=== PATIENT | male | born 2005 | race Caucasian/White ===

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

== ENCOUNTER 2025-01-24 00:55 | Emergency (ER) | payer BC, SELFPAY ==
[2025-01-24 00:59] VITALS: BP 127/72; PULSE 100; RESP 17; TEMP 36.7; O2SAT 100; BMI 21.0
--- NOTE | 2025-01-24 01:03 | ECG_ITS ---
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 Measurements Intervals [place] Rate: 90 P: 70 [place]: 163 QRS: 76 QRSD: 90 T: 55 QT: 350 QTc: 430 Interpretive Statements SINUS RHYTHM POSSIBLE LEFT ATRIAL ENLARGEMENT [-0.1mV P-WAVE IN V1/V2] INTERPRETATION BASED ON A DEFAULT AGE OF 40 YEARS No previous ECG available for comparison Electronically Signed On 01-24-2025 17:01:31 CDT by Michael Vee M.D. [id number]
--- NOTE | 2025-01-24 01:11 | XRR_ITS ---
PROCEDURE INFORMATION: Exam: XR Chest Exam date and time: 01/24/2025 2:08 AM Age: 19 years old Clinical indication: Chest pressure; C/O chest pain; Additional info: Cp TECHNIQUE: Imaging protocol: Radiologic exam of the chest. Views: 1 view. COMPARISON: CT abdomen pelvis w con* [id number] 07/08/2019 9:55 AM FINDINGS: Lungs: No consolidation. Pleural spaces: No pleural effusion. No pneumothorax. Heart/Mediastinum: No cardiomegaly. Bones/joints: No acute fracture. XR/XR chest 1V portable [id number] IMPRESSION: No acute findings.
[2025-01-24 01:54] LABS: Hematocrit 45.5 % (37-53); Hemoglobin 15.10 g/dL (13.2-15.6); Mean Corpuscular HGB Conc 33.2 g/dL (30-55); Mean Corpuscular Hemoglobin 29.1 pg (27-33); Mean Corpuscular Volume 87.7 fl (82-101); Nucleated Red Blood Cells % 0 %; Platelet Count 246 10^3/cmm (157-399); Red Blood Count 5.19 10^6/uL (3.85-5.65); White Blood Count 6.28 10^3/uL (4.5-13.0)
[2025-01-24 02:14] LABS: Alanine Aminotransferase 22 U/L (0-41); Albumin Level 4.9 g/dL (3.5-5.2); Alkaline Phosphatase 100 U/L (40-130); Anion Gap 14.0 (5-19); Aspartate Amino Transferase 19 U/L (0-40); Blood Urea Nitrogen 15 mg/dL (6-20); Calcium 9.8 mg/dL (8.5-10.5); Carbon Dioxide 25 mmol/L (22-29); Chloride 105 mmol/L (98-107); Creatinine Clr Calc Pharmacy 134.4015; Globulin 2.5 g/dL (1.3-4.6); Glucose 112 mg/dL (65-115); Osmolality Calculated 292 mOsm/kg (285-295); Potassium 4.0 mmol/L (3.5-5.1); Sodium 140 mmol/L (136-145); Total Protein 7.4 g/dL (6.6-8.7); Troponin(5th) Baseline < 6 ng/L (0-15)
[2025-01-24 03:12] LABS: Lipase 26 U/L (13-60)
[2025-01-24] MEDS: lidocaine 2% viscous 15 ML, aluminum-mag hydrox-simethicon 30 ML, sucralfate oral liq 1 GM PO (03:29)
--- NOTE | 2025-01-24 03:35 | ED_ITS ---
HPI - Abdominal Pain 2 General: Chief Complaint: Abdominal Pain Stated Complaint: Chest pain SOB heartburn Time Seen by Provider: 01/24/25 02:53 History of Present Illness: This 19-year-old male presents for follow-up evaluation of epigastric pain that has been ongoing since the beginning of this month. The patient reports intermittent pain localized to the epigastric region, describing it as occurring on and off throughout this time period. Notably, the pain appears to have a temporal pattern, with the patient feeling fine during the day but experiencing recurrence of symptoms. The patient mentions that a previous healthcare provider suggested the possibility of acid reflux, which he feels correlates with his symptom profile. At the time of examination, the patient was not experiencing active pain, though he reported tenderness upon palpation of the epigastric area. The pain does not appear to radiate significantly, with less intensity noted in adjacent areas. The patient denies any associated respiratory symptoms, nausea, vomiting, fever, cough, diarrhea, or morning acidic taste in the mouth. He acknowledges normal concerns about bad breath but no specific metallic or acidic taste. No history of abdominal surgeries reported. Related Data Home Medications ?Medication ?Instructions ?Recorded ?Confirmed ibuprofen 200 mg tablet 600 mg PO Q4H PRN Pain 07/0807/08/19 Previous Rx's ?Medication ?Instructions ?Recorded lansoprazole 30 mg capsule,delayed 30 mg PO DAILY #30 caps 01/24/25 release (Prevacid) Allergies Allergy/AdvReac Type Severity Reaction Status Date / Time No Known Allergies Allergy Verified 07/07/19 14:41 [facility] ED 2 PFSH: Social History Smoking and tobacco/nicotine status: never used tobacco/nicotine Physical Exam 2 Const: COMMON NORMALS: no acute distress GENERAL APPEARANCE: cooperative; not ill appearing and not frail appearing HENMT: COMMON NORMALS: normocephalic, atraumatic and Normal external nose present HEAD & SCALP: normocephalic and atraumatic FACE & SINUS: normal facial exam and face symmetric NOSE: Normal external nose present Eye: COMMON NORMALS: Equal, round and reactive pupils present and EOMs intact bilaterally PUPIL: Yes Equal, round and reactive pupils present Neck/C-Spine: GENERAL: Yes trachea midline Chest: CHEST: Yes Symmetrical chest wall rise Resp: COMMON NORMALS: normal respiratory effort, No retractions, No use of accessory muscles and clear to auscultation bilaterally AUSCULTATION: clear to auscultation bilaterally Cardio: COMMON NORMALS: regular rate and regular rhythm RATE: regular rate RHYTHM: regular rhythm GI: COMMON NORMALS: Soft to palpation INSPECTION: No abdominal distension PALPATION: Yes Soft to palpation and Yes Tenderness to palpation present (GI) Extremity: COMMON NORMALS: no pedal edema Neuro: MARIAJOSE COMA SCALE: document GCS findings [place] coma scale eye opening: Spontaneous Mariajose coma scale verbal response: Orientated Mariajose coma scale motor response: Obey commands [place] coma scale total score: 15 S ENSORY EXAM: Yes extremities (intact) Psych: COMMON NORMALS: speech normal SPEECH: Yes normal speech Skin: COMMON NORMALS: no rashes or lesions noted GENERAL SKIN EXAM: no rashes or lesions noted Course 2 Vital Signs: Vital signs: Vital Signs Temperature 98.1 F 01/24/25 00:59 Pulse Rate 81 01/24/25 03:55 Respiratory Rate 16 01/24/25 03:55 Blood Pressure 132/57 01/24/25 03:55 Pulse Oximetry 97 01/24/25 03:55 Oxygen Delivery Me thod Room Air 01/24/25 00:59 MDM - Abdominal Pain Medical Decision Making 19-year-old male patient with epigastric pain. He is tender in the area. EKG is normal. Troponin is nondetectable. Chest x-ray is negative. CBC and BMP as well as liver enzymes are normal. CRP is 3. He is given a GI cocktail with some improvement although his symptoms mostly resolved prior to his examination. He will be treated with PPI. Close outpatient follow-up. Return for new or worse symptoms. Lab Data 01/24/25 01:50 01/24/25 01:50 Labs/Radiology: Radiology Impressions Chest X-Ray 01/24/25 01:11 IMPRESSION: No acute findings. Laboratory Results WBC 6.28 10^3/uL (4.5-13.0) 01/24/25 01:50 RBC 5.19 10^6/uL (3.85-5.65) 01/24/25 01:50 Hgb 15.10 g/dL (13.2-15.6) 01/24/25 01:50 Hct 45.5 % (37-53) 01/24/25 01:50 MCV 87.7 fl (82-101) 01/24/25 01:50 MCH 29.1 pg (27-33) 01/24/25 01:50 MCHC 33.2 g/dL (30-55) 01/24/25 01:50 RDW 12.7 % (12.1-15.1) 01/24/25 01:50 Plt Count 246 10^3/cmm (157-399) 01/24/25 01:50 MPV 10.9 fL (7.4-10.4) H 01/24/25 01:50 Neut % (Auto) 54.7 % 01/24/25 01:50 Lymph % (Auto) 33.9 % 01/24/25 01:50 [place] % (Auto) 8.8 % 01/24/25 01:50 Eos % (Auto) 1.9 % 01/24/25 01:50 Baso % (Auto) 0.5 % 01/24/25 01:50 Neut # (Auto) 3.44 10^3/uL (1.8-8.0) 01/24/25 01:50 Lymph # (Auto) 2.1 10^3/uL (1.5-6.5) 01/24/25 01:50 [place] # (Auto) 0.6 10^3/uL (0.2-0.9) 01/24/25 01:50 Eos # (Auto) 0.1 10^3/uL (0.0-0.8) 01/24/25 01:50 Baso # (Auto) 0.0 10^3/uL (0.0-0.1) 01/24/25 01:50 Nucleated RBC % (auto) 0 % 01/24/25 01:50 Nucleated RBCs # 0.0 /100WBC 01/24/25 01:50 Sodium 140 mmol/L (136-145) 01/24/25 01:50 Potassium 4.0 mmol/L (3.5-5.1) 01/24/25 01:50 Chloride 105 mmol/L (98-107) 01/24/25 01:50 Carbon Dioxide 25 mmol/L (22-29) 01/24/25 01:50 Anion Gap 14.0 (5-19) 01/24/25 01:50 BUN 15 mg/dL (6-20) 01/24/25 01:50 Creatinine 0.9 mg/dL (0.7-1.2) 01/24/25 01:50 GFR Calculation 107.6 mL/min (90-130) 01/24/25 01:50 Glucose 112 mg/dL (65-115) 01/24/25 01:50 Calculated Osmolality 292 mOsm/kg (285-295) 01/24/25 01:50 Calcium 9.8 mg/dL (8.5-10.5) 01/24/25 01:50 Total Bilirubin 0.3 mg/dL (0.15-1.2) 01/24/25 01:50 AST 19 U/L (0-40) 01/24/25 01:50 ALT 22 U/L (0-41) 01/24/25 01:50 Alkaline Phosphatase 100 U/L (40-130) 01/24/25 01:50 Troponin T Baseline < 6 ng/L (0-15) 01/24/25 01:50 C-Reactive Protein 3.0 mg/L (0.0-4.9) 01/24/25 01:50 Total Protein 7.4 g/dL (6.6-8.7) 01/24/25 01:50 Albumin 4.9 g/dL (3.5-5.2) 01/24/25 01:50 Globulin 2.5 g/dL (1.3-4.6) 01/24/25 01:50 Lipase 26 U/L (13-60) 01/24/25 01:50 All radiology interpretation(s) finalized by discharge Discharge Plan Discharge Patient Disposition: Home Clinical Impression: Gastro-esophageal reflux, Esophageal spasm Condition: Stable Prescriptions: New lansoprazole [Prevacid] 30 mg capsule,delayed release(DR/EC) 30 mg PO DAILY Qty: 30 0RF No Action ibuprofen 200 mg Tablet 600 mg PO Q4H PRN (Reason: Pain) Discharge Orders: Discharge ED (Routine); Ordered 01/24/25 Ordered By: Brandon Cosme Referrals: Paulo Zuñiga MD [Primary Care Provider, [facility]] - 1-3 days Patient Instructions: GERD (Gastroesophageal Reflux Disease) (ED), Esophageal Spasm (ED), Opioid Safety, Pain Management, Patient Portal & [place] Instructions Activity Restrictions/Additional Instructions: Medication as directed. You should take for at least 1 month. Return for problems. Call your doctor tomorrow for a follow-up appointment. Print Language: Syrian Coding Level of Care Code ED Trauma Coordinator for Thai Juarez
[2025-01-24 03:55] VITALS: BP 132/57; PULSE 81; RESP 16; O2SAT 97
== END 2025-01-24 03:56 | disposition home or self-care (01) ==
PROVIDERS: Emergency Provider Emergency Medicine; PCP Family Medicine
DX: K21.9 Gastro-esophageal reflux disease without esophagitis (principal); K22.4 Dyskinesia of esophagus
CPT/HCPCS: 36415; 71045; 80053; 83690; 84484; 85025; 86140; 93005; 99285; J9999